=== PATIENT | female | born 1980 | race Caucasian/White ===

== ENCOUNTER 2024-04-13 06:32 | Emergency (ER) | payer BC, SELFPAY ==
[2024-04-13 06:34] VITALS: BP 138/96
[2024-04-13 07:35] LABS: ALT (SGPT) 11 U/L (0-35); AST (SGOT) 17 U/L (14-36); Albumin 3.8 g/dl (3.5-5.0); Alkaline Phosphatase 81 U/L (38-126); Blood Urea Nitrogen 17 mg/dl (7-17); Calcium 9.2 mg/dl (8.4-10.2); Carbon Dioxide 23 mmol/L (22-30); Chloride 109 mmol/L (98-107); Glucose 90 mg/dl (70-99); Lipase 94 U/L (23-300); Potassium 4.2 mmol/L (3.5-5.1); Sodium 139 mmol/L (135-145); Total Bilirubin 0.4 mg/dl (0.2-1.3); Total Protein 6.2 g/dl (6.3-8.2); eGFR > 60.00
--- NOTE | 2024-04-13 07:40 | ED.GENMED ---
History of Present Illness
<Mckinley Traore MD, Resident - Last Filed: 04/13/24 11:24>
General
Chief Complaint: Abdominal Pain
Time Seen by Provider: 04/13/24 07:17
History of Present Illness
History of Present Illness:
43 year old female with no significant past history presented with RUQ and epigastric pain which started at 3 am today. She states that she woke up with pain and the intensity was 10/10. Nausea and vomiting were associated with RUQ pain. She ate
4 pieces of chicken nugget for dinner last night. She has lost 45 lbs in 10 months with Mounjaro 10 mg/ weekly started in June of 2023. Currently her pain is 6-7/10. Patient states that she had a similar RUQ pain which lasted for 6 hours. She
treated with Tylenol and heating pads, the pain eventually subsided. She is on Mirena as a contraception. She denies fever in past 24 hours.
Review of Systems
<Mckinley Traore MD, Resident - Last Filed: 04/13/24 11:24>
Review of Systems
ABD/GI: Reports abdominal pain, nausea and vomiting
Phy Exam
<Mckinley Traore MD, Resident - Last Filed: 04/13/24 11:24>
General Physical Exam
General Presentation: mild distress
Cardiovascular Exam
Cardiovascular Exam: regular rate/rhythm
Pulmonary Exam
Pulmonary Exam: lungs clear
Gastrointestinal Exam
Gastrointestinal Exam: normal bowel sounds, soft, guarding, tender and other (No rebound tenderness, Valentine's sign present )
Palpation: right upper quadrant: Moderate tenderness
Auscultation of Abdomen: normal
Course
<Mckinley Traore MD, Resident - Last Filed: 04/13/24 11:24>
Orders/Labs/Results
Orders:
Orders
04/13/24 07:12
Complete Blood Count/With Diff Urgent
Comprehensive Metabolic Panel Urgent
HCG, Serum Qualitative Screen Urgent
Comment: ADD ON
Lipase Urgent
04/13/24 07:24
Add On- LAB Urgent
Tests Added?: serum qualatative
04/13/24 07:43
US Abdomen Complete/Upper Urgent
Comment:
Reason For Exam: right upper quandrant pain
04/13/24 07:50
Ketorolac [Toradol] 15 mg IV NOW STA
04/13/24 08:05
Ondansetron Injectable [Zofran] 4 mg .ROUTE .STK-MED ONE
04/13/24 08:06
Ondansetron Injectable [Zofran] 4 mg IV NOW STA
Abnormal Lab Results
04/13/24
07:12
Chloride 109 H mmol/L
(98-107)
Total Protein 6.2 L g/dl
(6.3-8.2)
04/13/24 07:12
04/13/24 07:12
Vital Signs
Initial and Last Documented VS:
Initial Vital Signs
Temp Pulse Resp BP Pulse Ox
98.1 F 74 26 138/96 100
04/13/24 06:34 04/13/24 06:34 04/13/24 06:34 04/13/24 06:34 04/13/24 06:34
Last Documented Vital Signs
Temp Pulse Resp BP Pulse Ox
98.1 F 71 16 130/71 100
04/13/24 06:34 04/13/24 11:21 04/13/24 11:21 04/13/24 11:21 04/13/24 11:21
<Kwaku Goodwin MD - Last Filed: 04/13/24 10:06>
Orders/Labs/Results
Orders:
Orders
04/13/24 07:12
Complete Blood Count/With Diff Urgent
Comprehensive Metabolic Panel Urgent
HCG, Serum Qualitative Screen Urgent
Comment: ADD ON
Lipase Urgent
04/13/24 07:24
Add On- LAB Urgent
Tests Added?: serum qualatative
04/13/24 07:43
US Abdomen Complete/Upper Urgent
Comment:
Reason For Exam: right upper quandrant pain
04/13/24 07:50
Ketorolac [Toradol] 15 mg IV NOW STA
04/13/24 08:05
Ondansetron Injectable [Zofran] 4 mg .ROUTE .STK-MED ONE
04/13/24 08:06
Ondansetron Injectable [Zofran] 4 mg IV NOW STA
Abnormal Lab Results
04/13/24
07:12
Chloride 109 H mmol/L
(98-107)
Total Protein 6.2 L g/dl
(6.3-8.2)
04/13/24 07:12
04/13/24 07:12
Vital Signs
Initial and Last Documented VS:
Initial Vital Signs
Temp Pulse Resp BP Pulse Ox
98.1 F 74 26 138/96 100
04/13/24 06:34 04/13/24 06:34 04/13/24 06:34 04/13/24 06:34 04/13/24 06:34
Last Documented Vital Signs
Temp Pulse Resp BP Pulse Ox
98.1 F 71 16 130/71 100
04/13/24 06:34 04/13/24 11:21 04/13/24 11:21 04/13/24 11:21 04/13/24 11:21
<Mckinley Traore MD, Resident - Last Filed: 04/13/24 11:24>
*Critical Care Note
Total Time (30-74mins, 75-104mins- exclusive of procedures): Not Applicable
<Mckinley Traore MD, Resident - Last Filed: 04/13/24 11:24>
Update Note
Update Note:
43 year old female presented to the ED RUQ and epigastric pain which started 5 hours ago.
D/D - 1. Acute Cholecystitis more likely
2. Acute pancreatitis
3 Peptic ulcer disease less likely
RUQ and Epigastric Pain:
- Checking CBC, CMP, Lipase, B HCG.
- Suspect acute cholecystitis , ordered Abdominal US
- IV 15 mg Toradol for pain.
- Cholelithiasis. No biliary ductal dilatation. Top normal gallbladder wall thickness. No pericholecystic fluid.
- Will d/c patient with gall stones discharge instruction.
- Provided info about Dr Adam Amaya, follow up outpatient.
- As needed tylenol for pain. Vitals are stable in the ED. Patient is hemodynamically stable.
Abdominal US
FINDINGS:
Liver: Normal size and echotexture.
Spleen: Normal size.
Gallbladder: Numerous mobile small gallstones. No pericholecystic fluid. Top normal gallbladder wall thickness, 3.6 mm. Reportedly, the patient received pain medication. Therefore, cannot assess for sonographic Valentine's sign.
Common bile duct: Normal, 4 mm.
Pancreas: Unremarkable.
Kidneys: No hydronephrosis.
IVC/aorta: Unremarkable
Ascites: None.
IMPRESSION:
Cholelithiasis. No biliary ductal dilatation. Top normal gallbladder wall thickness. No pericholecystic fluid
ED Attending Note
<Mckinley Traore MD, Resident - Last Filed: 04/13/24 11:24>
-
Portions of this chart may have been created with voice recognition software.� Occasional wrong word or��sound alike� substitutions may have occurred due to the inherent limitations of voice recognition software.
<Kwaku Goodwin MD - Last Filed: 04/13/24 10:06>
ED Attending Note
Patient seen and examined by attending physician: Yes
I performed the substantive portion of visit, reviewed & personally made and approve the management plan that is documented in note by myself or RUDY.: Yes
ED Attending Note:
43-year-old female sudden onset of epigastric right upper quadrant pain to the back in the middle of the night. She has had 1 previous episode of the same. Symptoms are improving now. Some intermittent nausea. No fever chills or other
complaints. Patient is on Mounjaro and has had a 40 some pound weight loss
On exam patient is nontoxic in no distress. Warm and dry. Perfusing well. Lungs clear and equal. Heart regular rate and rhythm no murmur. Abdomen soft with mild epigastric and mild to moderate right upper quadrant tenderness although per the
patient, significantly improved. No rebound or guarding no mass or hernia.
Symptoms most consistent with biliary colic or early acute cholecystitis. Labs are stable. White count is normal. LFTs are normal. Ultrasound pending. Further care will be dependent on patient's clinical symptoms and ultrasound findings. If
ultrasound shows no signs of acute cholecystitis and patient is asymptomatic she can be discharged to follow-up. If ultrasound shows findings consistent with acute cholecystitis or if she has ongoing pain patient will be admitted for further care
Discharge Plan
Departure
Patient Disposition: Home (Routine Discharge)
Date of Disposition: 04/13/24
Time of Disposition: 11:12
Patient with high blood pressure during this ER visit?: No
Discharge Problem:
Cholelithiases, Biliary colic
Instructions: Gallstones (DC)
Referrals:
Adam Amaya MD [Active] -
Teresa Davenport DO [Family Provider] -
Interventions
Interventions:
*Risk Screen - Suicide Last Done: 04/13/24 06:34
*General Assessment Last Done: 04/13/24 07:16
*Neglect/Abuse Screening Last Done: 04/13/24 06:34
ED- Fall Risk Assessment Last Done: 04/13/24 07:16
TK-Zjefum-[id number] Assessment Last Done: 04/13/24 07:16
Discharge Date and Time
Print Language: SINHALA
[2024-04-13 07:41] LABS: % Basophils 0.6 % (0-2); % Eosinophils 3.7 % (0-6); % Immature Granulocytes 0.4 % (0-0.5); % Lymphocytes 26.3 % (20.5-51.1); % Monocytes 5.4 % (1.7-9.3); % Neutrophils 63.6 % (42.2-75.2); Absolute Basophils 0.1 10^3/uL (0-0.2); Absolute Eosinophils 0.3 10^3/uL (0-0.7); Absolute Lymphocytes 2.4 10^3/uL (1.2-3.4); Absolute Monocytes 0.5 10^3/uL (0.1-0.6); Absolute Neutrophils 5.9 10^3/uL (1.4-6.5); Hematocrit 41.6 % (37.0-47.0); Hemoglobin 14.3 g/dL (12.0-16.0); Mean Corp Hgb Conc. 34.4 g/dL (33.0-37.0); Mean Corpuscular Hgb 29.5 pg (27.0-31.0); Mean Platelet Volume 9.6 fL (7.4-10.4); Nucleated Red Blood Cells % 0 %; Platelet Count 301 10^3/uL (130-400); Red Blood Cell Count 4.84 10^6/uL (4.20-5.40); Red Cell Dist. Width 13.1 % (11.5-14.5); White Blood Cell Count 9.3 10^3/uL (4.8-10.8)
[2024-04-13] MEDS: TORADOL 15 MG IV (07:59)
[2024-04-13 08:05] LABS: HCG, Serum Qualitative Screen Negative
[2024-04-13] MEDS: ZOFRAN 4 MG IV (08:06)
[2024-04-13 08:21] VITALS: BP 137/82
[2024-04-13 08:39] VITALS: BP 122/64
[2024-04-13 09:52] VITALS: BP 127/74
[2024-04-13 11:21] VITALS: BP 130/71
== END 2024-04-13 11:28 | disposition home or self-care (01) ==
LOC: EMR 06:32
PROVIDERS: EMERGENCY PHYSICIAN Emergency Medicine; FAMILY PHYSICIAN Family Medicine
DX: K80.70 Calculus of gallbladder and bile duct without cholecystitis without obstruction (principal)
CPT/HCPCS: 99284; 96374; 96375; 76700; 80053; 83690; 84703; 85025

== ENCOUNTER 2024-05-23 06:24 | Day surgery (SDC) | payer BC, SELFPAY ==
[2024-05-23] VITALS (9 sets, daily range): BP systolic 110–132; BP diastolic 57–81; BMI 35.3
[2024-05-23] MEDS: TYLENOL 1000 MG PO (08:11)
[2024-05-23] MEDS: NORMOSOL-R 1000 IV (08:27)
--- NOTE | 2024-05-23 08:37 | W.SUR.PREOP ---
Pre-Operative Surgical Note
-
I have examined this patient prior to the performance of the scheduled procedure.
The patient's condition is unchanged from the time of the current History and
Physical and the patient is able to undergo the scheduled procedure.
--- NOTE | 2024-05-23 10:46 | W.IMMPOSTOP ---
Addendum entered and electronically signed by Adam Amaya MD 05/23/24 16:16:
#[id number]
Original Note:
Surgical Immed Post Op Note
-
Primary Surgeon: Jose Luis
Assisting Surgeon: None
Pre-op Diagnosis: Symptomatic cholelithiasis
Post-op Diagnosis: Symptomatic cholelithiasis
Procedure Performed: Laparoscopic cholecystectomy with intraoperative cholangiogram
Anesthesia Type: GETA +0.25% Marcaine
Specimen / Cultures: Gallbladder
Estimated Blood Loss: 10 mL
Complications: None immediate
Operative Findings: Physiologically distended gallbladder with gallstones and a few filmy adhesions around the infundibular region. Cystic duct mildly dilated and stones extracted from proximal to mid cystic duct. Intraoperative cholangiogram
performed and normal. Cystic duct controlled with hemoclips. Gallbladder removed otherwise intact and extracted at epigastric 12 mm trocar site.
Patient's updated postoperatively via phone call
[2024-05-23] MEDS: ROXICODONE 5 MG PO (12:10)
== END 2024-05-23 12:28 | disposition home or self-care (01) ==
LOC: SDS 06:24
PROVIDERS: ATTENDING PHYSICIAN Surgery
DX: K80.10 Calculus of gallbladder with chronic cholecystitis without obstruction (principal)
CPT/HCPCS: 47563; 88304; 74300; 76000

== ENCOUNTER → 2024-06-05 11:03 | Outpatient (REF) | payer OTHER, SELFPAY ==
[2024-06-05 17:15] LABS: Mumps Virus IgG Positive; Rubeola (Measles) IgG Positive; Varicella Zoster IgG (VZV) Positive
[2024-06-05 20:24] LABS: Rubella Negative
[2024-06-07 13:24] LABS: Quantiferon Mitogen minus NIL 9.95 IU/mL; Quantiferon NIL 0.05 IU/mL; Quantiferon Plus TB1 minus NIL 0.03 IU/mL (<=0.34); Quantiferon Plus TB2 minus NIL 0.02 IU/mL (<=0.34); Quantiferon TB Gold Plus Negative (Negative)
== END ==
LOC: OHS 11:03
PROVIDERS: ATTENDING PHYSICIAN Nurse Practitioner Family
DX: Z23 Encounter for immunization (principal)
CPT/HCPCS: 36415; 86480; 86735; 86762; 86765; 86787